=== PATIENT | female | born 1990 | race Caucasian/White ===

== ENCOUNTER 2017-08-09 15:56 | Emergency (ER) | payer SELFPAY ==
[~2017-08-09] VITALS: Ht 175.3 cm; Wt 57.5 kg
[2017-08-09] MEDS ORDERED: SODIUM CHLORIDE 0.9% 1000ML 1,000 ML IV STA (16:02)
[2017-08-09 16:03] VITALS: TEMP 37.6; Ht 175.3 cm; Wt 57.5 kg
[2017-08-09 16:17] VITALS: O2SAT 100
--- NOTE | 2017-08-09 16:22 | DIAGNOSTIC IMAGING REPORT ---
CHEST ONE VIEW PORTABLE CLINICAL HISTORY: Overdose COMPARISON STUDY: No previous studies for comparison. FINDINGS: The cardiac and mediastinal contours are normal. There is no evidence of focal pulmonary consolidation. There is no evidence of failure. No pleural effusions are visualized.[ IMPRESSION: No active disease in the chest. Electronically signed by: Arian Gray M.D. 08/09/2017 4:21 PM Dictated Date/Time: 08/09/2017 4:21 PM
[2017-08-09 17:02] LABS: HEMATOCRIT 37.1 % (37-47); MEAN CELL VOLUME 92.3 fL (80-100); MEAN CORPUSCULAR HEMOGLOBIN 31.1 pg (25-34); MEAN CORPUSCULAR HGB CONC 33.7 g/dl (32-36); MEAN PLATELET VOLUME 9.7 fL (7.4-10.4); PLATELET COUNT 276 K/uL (130-400); RED BLOOD COUNT 4.02 M/uL (4.2-5.4); WHITE BLOOD COUNT 19.86 K/uL (4.8-10.8)
[2017-08-09 17:05] LABS: ISTAT CREATININE 0.7 mg/dl (0.6-1.3); ISTAT HEMOGLOBIN 13.3 g/dl (12.0-16.0); ISTAT IONIZED CALCIUM 1.18 mmol/l (1.12-1.32)
[2017-08-09 17:13] LABS: INR 1.2 (0.9-1.1); PROTHROMBIN TIME (PATIENT) 12.7 SECONDS (9.0-12.0)
[2017-08-09 17:21] LABS: ALT/SGPT 25 U/L (12-78); AST/SGOT 23 U/L (15-37); BLOOD UREA NITROGEN 14 mg/dl (7-18); BUN/CREATININE RATIO 21.6 (10-20); CALCIUM 8.3 mg/dl (8.5-10.1); CARBON DIOXIDE 26 mmol/L (21-32); CHLORIDE 108 mmol/L (98-107); CREATININE 0.65 mg/dl (0.60-1.20); GLUCOSE 112 mg/dl (70-99); MAGNESIUM 1.9 mg/dl (1.8-2.4); POTASSIUM 3.9 mmol/L (3.5-5.1); SODIUM 140 mmol/L (136-145)
[2017-08-09 17:23] LABS: ACETAMINOPHEN < 2 ug/ml (10-30)
[2017-08-09 17:24] LABS: ALKALINE PHOSPHATASE 49 U/L (45-117)
[2017-08-09 18:46] VITALS: BP 113/86; PULSE 114; O2SAT 100
--- NOTE | 2017-08-09 20:19 | EMERGENCY ROOM VISIT NOTE ---
History Report prepared by Cathy: Pao Cabral Under the Supervision of: Dr. Devin Obando M.D. First contact with patient: 16:02 Chief Complaint: OVERDOSE (ACCIDENTAL) Stated Complaint: HEROIN OVERDOSE/CARDIAC History of Present Illness The patient is a 26 year old female who presents to the Emergency Room with an episode of heroin overdose around 1515 today. The patient presents to the ED by EMS. EMS was called to her home after someone saw her in her home. EMS arrived and was breathing for her until she came to. She did not receive compressions or Narcan. She notes that she used 2 bags of heroin IV today at 1515. She has been using heroin for a couple months now. She has had similar episodes before which did not require a hospital visit. She states that she just came to. She denies any other drug or alcohol use. Pt denies headache, fevers, chills, diaphoresis, visual changes, neck pain, chest pain, breathing difficulties, nausea, vomiting, abdominal pain, back pain, melena, hematochezia, urinary symptoms, numbness, weakness, lymphadenopathy, rash, or other complaints. Source of History: patient, nursing staff Onset: 1514 Position: other (global) Quality: other (heroin overdose) Timing: other (episodic) Associated Symptoms: + LOC Review of Systems See HPI for pertinent positives and negatives. A total of ten systems were reviewed and were otherwise negative. Past Medical & Surgical Surgical Problems: (1) S/P tonsillectomy Family History No pertinent family history stated. Social History Drug Use: heroin Current/Historical Medications No Active Prescriptions or Reported Meds Allergies Coded Allergies: Tetracycline (Unverified Allergy, Unknown, HIVES, 08/09/17) Physical Exam Vital Signs Date Time Temp Pulse Resp B/P (MAP) Pulse Ox O2 Delivery O2 Flow Rate FiO2 08/09/17 18:46 114 18 113/86 100 Room Air 08/09/17 16:57 110 16 118/74 100 Room Air 08/09/17 16:17 100 Room Air 08/09/17 16:17 100 Room Air 08/09/17 16:06 113 08/09/17 16:03 37.6 103 20 143/89 100 Room Air Physical Exam GENERAL: Awake, alert, tired appearing, no distress HENT: Normocephalic, atraumatic. TM's normal. Oropharynx unremarkable. EYES: Pupils 3mm and reactive. EOMI. Normal conjunctiva. Sclera non-icteric. NECK: Supple. No nuchal rigidity. FROM. No JVD or bruit. RESPIRATORY: CTA CARDIAC: Tachycardic rate, regular rhythm. No murmur. ABDOMEN: Soft, non distended. No tenderness to palpation. No rebound or guarding. No masses. RECTAL: Deferred. MUSCULOSKELETAL: Unremarkable. No edema. No discoloration. Gross motor strength symmetric. NEURO: Cranial nerves 2-12 grossly intact. Normal sensorium. No sensory or motor deficits noted. Speech normal. No pronator drift. SKIN: No rash or jaundice noted. LYMPH: No adenopathy. Medical Decision & Procedures ER Provider Diagnostic Interpretation: Radiology results as stated below per my review and radiologist interpretation: CHEST ONE VIEW PORTABLE CLINICAL HISTORY: Overdose COMPARISON STUDY: No previous studies for comparison. FINDINGS: The cardiac and mediastinal contours are normal. There is no evidence of focal pulmonary consolidation. There is no evidence of failure. No pleural effusions are visualized.[ IMPRESSION: No active disease in the chest. Electronically signed by: Arian Gray M.D. 08/09/2017 4:21 PM Dictated Date/Time: 08/09/2017 4:21 PM Laboratory Results 08/09/17 16:30 08/09/17 16:30 Test 08/09/17 16:30 08/09/17 16:37 08/09/17 16:52 Red Blood Count 4.02 M/uL (4.2-5.4) Mean Corpuscular Volume 92.3 fL (80-100) Mean Corpuscular Hemoglobin 31.1 pg (25-34) Mean Corpuscular Hemoglobin Concent 33.7 g/dl (32-36) RDW Standard Deviation 45.5 fL (36.4-46.3) RDW Coefficient of Variation 13.5 % (11.5-14.5) Mean Platelet Volume 9.7 fL (7.4-10.4) Prothrombin Time 12.7 SECONDS (9.0-12.0) Prothromb Time International Ratio 1.2 (0.9-1.1) Activated Partial Thromboplast Time 25.9 SECONDS (21.0-31.0) Partial Thromboplastin Ratio 1.0 Est Creatinine Clear Calc Drug Dose 117.0 ml/min Estimated GFR () 140.0 Estimated GFR (Non- 120.8 BUN/Creatinine Ratio 21.6 (10-20) Osmolality 289 mOsm/kg (280-300) Calcium Level 8.3 mg/dl (8.5-10.1) Magnesium Level 1.9 mg/dl (1.8-2.4) Total Bilirubin 0.4 mg/dl (0.2-1) Direct Bilirubin < 0.1 mg/dl (0-0.2) Aspartate Amino Transf (AST/SGOT) 23 U/L (15-37) Alanine Aminotransferase (ALT/SGPT) 25 U/L (12-78) Alkaline Phosphatase 49 U/L (45-117) Total Creatine Kinase 80 U/L (26-192) Troponin I < 0.015 ng/ml (0-0.045) Total Protein 7.3 gm/dl (6.4-8.2) Albumin 3.5 gm/dl (3.4-5.0) Lipase 54 U/L (73-393) Human Chorionic Gonadotropin, Quant < 1 mIU/mL Salicylates Level < 1.7 mg/dl (2.8-20) Acetaminophen Level < 2 ug/ml (10-30) Ethyl Alcohol mg/dL < 3.0 mg/dl (0-3) Bedside Glucose 129 mg/dl (70-90) Bedside Hemoglobin 13.3 g/dl (12.0-16.0) Bedside Hematocrit 39 % (37-47) Bedside Sodium 140 mEq/L (135-144) Bedside Potassium 3.8 mEq/L (3.3-5.0) Bedside Chloride 104 mEq/L (101-112) Bedside Total CO2 26 mEq/l (24-31) Anion Gap 16.0 mmol/L (16-25) Bedside Blood Urea Nitrogen 14 mg/dl (7-18) Bedside Creatinine 0.7 mg/dl (0.6-1.3) Bedside Glucose (other) 115 mg/dl (70-99) Bedside Ionized Calcium (Rachelle) 1.18 mmol/l (1.12-1.32) Laboratory results reviewed by me Medications Administered Medications (Trade) Dose Ordered Sig/Liz Route Start Time Stop Time Status Last Admin Dose Admin Sodium Chloride 1,000 ml @ 999 mls/hr Q1H1M STAT IV 08/09/17 16:02 08/09/17 17:02 DC 08/09/17 16:54 999 MLS/HR ECG Indication: tachycardia Rate (beats per minute): 102 Rhythm: sinus tachycardia Findings: no acute ischemic change, no ectopy, other (left atrial enlargement, right axis, normal intervals) ED Course 1602: NSS 1000 ml @ 999 mls/hr IV. 1604: The patient was evaluated in room B1. A complete history and physical exam was performed. 1714: I reevaluated the patient. She is stable. 1846: I reevaluated the patient. She had pulled her own IV out. She is wide awake. I discussed results and discharge instructions: she verbalized understanding and agreement. I counseled her. The patient is ready for discharge. Medical Decision Triage Nursing notes reviewed and agree them. Additional history obtained from EMS. The patient's history was concerning for respiratory arrest and probable overdose. Differential diagnosis: Etiologies such as toxicologic, infection, hypoglycemia, electrolyte abnormalities, cardiac sources, intracerebral event, neurologic, as well as others were entertained. Physical examination: The patient had normal sensorium. No trauma noted. ER treatment provided: IV NSS 1 L bolus IV hydration NSS 200 mL/hr On reassessment the patient was doing well. She was wide-awake. She had a pulse oximetry 100% on room air the entire time. She had no respiratory issues. Diagnostic interpretation by me: The electrocardiogram was negative for pathologic change. There was no QRS widening or interval prolongation. The labs revealed an unremarkable i-STAT. CBC revealed a significant leukocytosis, likely a stress response. Imaging studies: As above. No pulmonary edema. This appears to be an isolated overdose of heroin. The patient admits to using 2 bags. Thankfully she was found and had correction of her problem with assisted ventilation and spontaneous resolution of her altered state. The patient desired discharge. She removed her own IV. She did not give a urine sample. I had the hospice case manager give her the information on drug rehabilitation. The patient was counseled. She was instructed to follow up with a primary physician. She has had no issues at all during the several hours in the emergency department. I believe that she had very concerning heroin overdose. The patient does not want stay in the hospital any longer and I cannot force her to stay. She wished to walk home from the hospital however she did agree to stay for a taxi. I gave my usual and customary discussion regarding this issue. By the Evaluation outlined above emergent etiologies such as infection, hypoglycemia, electrolyte abnormalities, cardiac sources, intracerebral event, neurologic,as well as others were deemed relatively unlikely. The patient was informed about the findings as listed above. All questions were answered and she was pleased with the treatment. Return instructions were outlined and the patient was discharged in stable condition. Referral: The patient was referred to drug rehabilitation as well as to find a primary physician. Medication Reconcilliation Current Medication List: was personally reviewed by me Blood Pressure Screening Patient's blood pressure: Elevated blood pressure Blood pressure disposition: Elevated BP felt to be situational Was instructed to follow up with family doctor. Impression Primary Impression: Heroin overdose Scribe Attestation The scribe's documentation has been prepared under my direction and personally reviewed by me in its entirety. I confirm that the note above accurately reflects all work, treatment, procedures, and medical decision making performed by me. Departure Information Dispostion Home / Self-Care Prescriptions No Active Prescriptions or Reported Meds Forms HOME CARE DOCUMENTATION FORM, IMPORTANT VISIT INFORMATION, WORK / SCHOOL INSTRUCTIONS Patient Instructions Abuse Heroin Abuse and Addiction, ED Overdose Opiate, My [facility] Additional Instructions Do not do heroin. DO NOT drive, drink alcohol, operate machinery, or perform dangerous activities today. Rest today in a quiet, peaceful, dark environment and get a full 8-10 hrs of sleep tonight. Ibuprofen(Motrin, Advil) may be used for fever or pain. Use 600mg every six hours as needed. Take with food. Avoid using more than 2400mg in a 24 hour period. Do not use 2400mg per day for more than three consecutive days without physician direction. Prolonged inappropriate use can lead to stomach upset or ulcers. (AND/OR) Acetaminophen(Tylenol) may be used for fever or pain. Use 1000mg every six hours as needed. Avoid using more than 4000mg in a 24 hour period. Return to the ER for passing out, headache, vision problems, neck stiffness/pain , fevers, difficulty breathing, chest pain, vomiting, worsening of your condition, or as needed. Follow up with a primary physician next week for a recheck of your current condition.
== END 2017-08-09 19:10 | disposition home or self-care (01) ==
LOC: C.EDB 16:00 → C.EDA 19:10
DX: T40.1X1A Poisoning by heroin, accidental (unintentional), initial encounter (principal)